=== PATIENT | male | born 1940 | race Caucasian/White ===

== ENCOUNTER 2021-07-29 07:06 | Inpatient (IN) | payer MEDICARE, OTHER ==
[~2021-07-29] VITALS: Ht 167.6 cm; Wt 59.4 kg
[~2021-07-29 07:06] MED LIST: ACCU-CHEK1 EAC1 SQ; ALDACTONE25 MG PO; AMBIEN5 MG PO; BACTRIM 400-801 EACH PO; BENADRYL 25MG C25 MG PO; BENADRYL ITCH28.3 GM TP; BUSPIRONE HCL10 MG PO; CLOTRIMAZOLE28 GM TP; COZAAR50 MG PO; DICLOFENAC SODI25 MG PO; DIMETHICONE; DULCOLAX10 MG PR; DULCOLAX5 MG PO; FLUVASTATIN SOD20 MG PO; FUROSEMIDE10 MG/1 M1 PO; GLUCAGON EMERGEN1 MG INJ; GLUCOSE GEL38 GM PO; GLUCOTROL 10 MG10 MG PO; HYDROGEL MC; IBUPROFEN400 MG PO; INVOKANA 100 M100 MG PO; JANUMET 50-1,01 EACH PO; KEFLEX500 MG PO; LANTUS100 UNIT/1 SQ; MAPAP325 MG PO; MILK OF MAGNESI30 ML PO; MOTRIN SUS100 MG/5 M PO; TRAZODONE HCL50 MG PO; VITAMIN B-1000 MCG/M IM; XALATAN2.5 ML OP
[2021-07-29 07:58] LABS: HEMOGLOBIN 13.9 gm/dl (14.0-17.5); RED BLOOD COUNT 4.51 M/UL (4.20-5.50); WHITE BLOOD COUNT 18.9 K/UL (4.5-11.0)
[2021-07-29] MEDS ORDERED: FLOMAX 0.4 MG0.4 MG PO (11:13)
[2021-07-29] MEDS ORDERED: DRONABINOL2.5 MG PO (11:13)
[2021-07-29] MEDS ORDERED: ESCITALOPRAM OX20 MG PO (11:14)
[2021-07-29] MEDS ORDERED: ESCITALOPRAM OX10 MG PO (11:14)
[2021-07-29] MEDS ORDERED: VITAMIN D325 MC6 PO (11:19)
[2021-07-29] MEDS ORDERED: HUMALOG100 UNIT/3 SQ (11:19)
[2021-07-29] MEDS ORDERED: CULTURELLE1 EACH PO (11:20)
[2021-07-29] MEDS ORDERED: FERROUS SULFAT325 MG PO (11:20)
[2021-07-29] MEDS ORDERED: VITAMIN C500 M4 PO (11:20)
[2021-07-29 20:04] LABS: WHITE BLOOD COUNT 22.6 K/UL (4.5-11.0)
[2021-07-29 20:07] LABS: RED BLOOD COUNT 3.97 M/UL (4.20-5.50)
[2021-07-30 05:31] LABS: RED BLOOD COUNT 3.92 M/UL (4.20-5.50)
[2021-07-31 06:16] LABS: RED BLOOD COUNT 3.61 M/UL (4.20-5.50)
[2021-08-01 06:44] LABS: HEMOGLOBIN 10.3 gm/dl (14.0-17.5); RED BLOOD COUNT 3.42 M/UL (4.20-5.50)
[2021-08-01 06:45] LABS: WHITE BLOOD COUNT 10.7 K/UL (4.5-11.0)
[2021-08-02 06:09] LABS: HEMOGLOBIN 11.7 gm/dl (14.0-17.5); WHITE BLOOD COUNT 11.7 K/UL (4.5-11.0)
[2021-08-02 06:15] LABS: RED BLOOD COUNT 3.83 M/UL (4.20-5.50)
--- NOTE | 2021-08-02 16:46 | NUR ---
dsg change to foot done as ordered.
[2021-08-03 07:00] LABS: HEMOGLOBIN 10.6 gm/dl (14.0-17.5); RED BLOOD COUNT 3.52 M/UL (4.20-5.50); WHITE BLOOD COUNT 9.8 K/UL (4.5-11.0)
[2021-08-04 11:42] LABS: HEMOGLOBIN 10.8 gm/dl (14.0-17.5); RED BLOOD COUNT 3.56 M/UL (4.20-5.50); WHITE BLOOD COUNT 9.5 K/UL (4.5-11.0)
[2021-08-04] MEDS ORDERED: STIMULANT LAXA1 EACH PO (12:38)
[2021-08-04] MEDS ORDERED: MEGACE 400400 MG/10 PO (12:38)
[2021-08-04] MEDS ORDERED: THERAGRAN M TAB1 EA PO (12:38)
[2021-08-04] MEDS ORDERED: ASPIRIN EC81 MG PO (12:38)
[2021-08-04] MEDS ORDERED: LEVOFLOXACIN250 MG PO (12:38)
[2021-08-04] MEDS ORDERED: TYLENOL 8 HOUR650 MG PO (12:38)
[2021-08-04] MEDS ORDERED: HYSEPT473 ML TOP (12:38)
[2021-08-04] MEDS ORDERED: LANTUS100 UNIT/1 SQ (12:49)
== END 2021-08-04 17:07 | DRG 698 ==
LOC: ER1 07:06 → MED SURG 4 09:26 → CDU 09:26 → CCU 09:26 → MED SURG 4 08-01 17:15
PROVIDERS: Emergency Medicine; Internal Medicine Infectious Disease; Podiatrist Foot & Ankle Surgery; ADMIT Internal Medicine
PROC: 3E03329 Introduction of Other Anti-infective into Peripheral Vein, Percutaneous Approach (ICD-10-PCS; principal; 2021-07-29)
PROC: B24BZZZ Ultrasonography of Heart with Aorta (ICD-10-PCS; 2021-08-03)
DX: T83.511A Infection and inflammatory reaction due to indwelling urethral catheter, initial encounter (principal); A41.52 Sepsis due to Pseudomonas; R65.20 Severe sepsis without septic shock; Z20.822 Contact with and (suspected) exposure to COVID-19; G93.41 Metabolic encephalopathy; Z66 Do not resuscitate; J69.0 Pneumonitis due to inhalation of food and vomit; N17.9 Acute kidney failure, unspecified; N30.00 Acute cystitis without hematuria; M86.671 Other chronic osteomyelitis, right ankle and foot; I13.0 Hypertensive heart and chronic kidney disease with heart failure and stage 1 through stage 4 chronic kidney disease, or unspecified chronic kidney disease; M62.82 Rhabdomyolysis; E87.2 Acidosis; E87.0 Hyperosmolality and hypernatremia; I50.9 Heart failure, unspecified; E11.69 Type 2 diabetes mellitus with other specified complication; F03.90 Unspecified dementia, unspecified severity, without behavioral disturbance, psychotic disturbance, mood disturbance, and anxiety; E11.649 Type 2 diabetes mellitus with hypoglycemia without coma; E78.00 Pure hypercholesterolemia, unspecified; F17.210 Nicotine dependence, cigarettes, uncomplicated; E11.65 Type 2 diabetes mellitus with hyperglycemia; Y84.6 Urinary catheterization as the cause of abnormal reaction of the patient, or of later complication, without mention of misadventure at the time of the procedure; E11.51 Type 2 diabetes mellitus with diabetic peripheral angiopathy without gangrene; I07.1 Rheumatic tricuspid insufficiency; N40.1 Benign prostatic hyperplasia with lower urinary tract symptoms; R33.8 Other retention of urine; E11.22 Type 2 diabetes mellitus with diabetic chronic kidney disease; N18.30 Chronic kidney disease, stage 3 unspecified; Z79.4 Long term (current) use of insulin; Z74.01 Bed confinement status; Z79.01 Long term (current) use of anticoagulants; Z79.82 Long term (current) use of aspirin; Z98.42 Cataract extraction status, left eye; Z98.41 Cataract extraction status, right eye
CPT/HCPCS: ECHO; 0240U; 36415; 36600; 70450; 71045; 73600; 80048; 80053; 80202; 81001; 82436; 82550; 82553; 82570; 82607; 82803; 82962; 83036; 83605; 83735; 83874; 83880; 83930; 84100; 84132; 84133; 84156; 84300; 84443; 84484; 85025; 85652; 86140; 87040; 87070; 87077; 87086; 87186; 87205; 93005; 93306; 93926; 94664; 94760; 96374; 96375; 99285; A6212; C9113; J0696; J1450; J1644; J2185; J3370; J3480; J7050; J7060; J7070

== ENCOUNTER 2021-10-08 07:09 | Inpatient (IN) | payer MEDICARE, OTHER ==
[~2021-10-08] VITALS: Ht 182.9 cm; Wt 62.1 kg
[~2021-10-08 07:09] MED LIST changes: +ASPIRIN EC81 MG PO; +CULTURELLE1 EACH PO; +DRONABINOL2.5 MG PO; +ESCITALOPRAM OX10 MG PO; +ESCITALOPRAM OX20 MG PO; +FERROUS SULFAT325 MG PO; +FLOMAX 0.4 MG0.4 MG PO; +HUMALOG100 UNIT/3 SQ; +HYSEPT473 ML TOP; +LEVOFLOXACIN250 MG PO; +MEGACE 400400 MG/10 PO; +STIMULANT LAXA1 EACH PO; +THERAGRAN M TAB1 EA PO; +TYLENOL 8 HOUR650 MG PO; +VITAMIN C500 M4 PO; +VITAMIN D325 MC6 PO
[2021-10-08 07:44] LABS: HEMOGLOBIN 14.4 gm/dl (14.0-17.5); RED BLOOD COUNT 4.78 M/UL (4.20-5.50); WHITE BLOOD COUNT 10.4 K/UL (4.5-11.0)
[2021-10-08 08:07] LABS: BUN/CREATININE RATIO 40 (0-10)
[2021-10-08] MEDS ORDERED: MIRTAZAPINE15 MG PO (17:04)
[2021-10-08] MEDS ORDERED: CITALOPRAM HBR10 MG PO (17:04)
[2021-10-08] MEDS ORDERED: CYPROHEPTADINE H4 MG PO (17:05)
[2021-10-08] MEDS ORDERED: BISACODYL5 MG PO (17:07)
[2021-10-08] MEDS ORDERED: VITAMIN A & D113 G1 TOP (17:10)
[2021-10-08] MEDS ORDERED: VITAMIN C500 M4 PO (17:11)
[2021-10-08] MEDS ORDERED: ESCITALOPRAM OX20 MG PO (17:13)
[2021-10-09 04:01] LABS: HEMOGLOBIN 11.8 gm/dl (14.0-17.5); RED BLOOD COUNT 3.99 M/UL (4.20-5.50); WHITE BLOOD COUNT 18.3 K/UL (4.5-11.0)
[2021-10-10 03:23] LABS: CANDIDA ALBICANS Not Detected (Negative); ESCHERICHIA COLI Not Detected (Negative); HAEMOPHILUS INFLUENZAE Not Detected (Negative); KLEBSIELLA OXYTOCA Not Detected (Negative); KLEBSIELLA PNEUMONIAE Not Detected (Negative); KPC-CARBAPENEM-RESISTANCE GENE Not Detected (Negative); PROTEUS Not Detected (Negative); PSEUDOMONAS AERUGINOSA Not Detected (Negative); SERRATIA MARCESANS Not Detected (Negative); STAPHYLOCOCCUS AUREUS Not Detected (Negative); STREP AGALACTIAE (GROUP B) Not Detected (Negative); STREP PYOGENES (GROUP A) Not Detected (Negative); STREPTOCOCCUS Not Detected (Negative); vanA/B (VANCOMYCIN RESIST GENE Not Detected (Negative)
[2021-10-10 03:24] LABS: CANDIDA KRUSEI Not Detected (Negative); CANDIDA TROPICALIS Not Detected (Negative)
[2021-10-10 04:44] LABS: STAPHYLOCOCCUS DETECTED (Negative)
[2021-10-10 05:21] LABS: BUN/CREATININE RATIO 39 (0-10)
[2021-10-11 12:31] LABS: HEMOGLOBIN 10.9 gm/dl (14.0-17.5); RED BLOOD COUNT 3.63 M/UL (4.20-5.50); WHITE BLOOD COUNT 16.1 K/UL (4.5-11.0)
[2021-10-11 13:04] LABS: BUN/CREATININE RATIO 36 (0-10)
[2021-10-12 01:50] LABS: HEMOGLOBIN 11.3 gm/dl (14.0-17.5); RED BLOOD COUNT 3.77 M/UL (4.20-5.50); WHITE BLOOD COUNT 14.1 K/UL (4.5-11.0)
[2021-10-12 02:27] LABS: BUN/CREATININE RATIO 39 (0-10)
[2021-10-13 02:25] LABS: HEMOGLOBIN 11.3 gm/dl (14.0-17.5); RED BLOOD COUNT 3.78 M/UL (4.20-5.50); WHITE BLOOD COUNT 12.6 K/UL (4.5-11.0)
[2021-10-13 02:54] LABS: BUN/CREATININE RATIO 49 (0-10)
[2021-10-14 05:13] LABS: BUN/CREATININE RATIO 59 (0-10)
[2021-10-15 03:14] LABS: BUN/CREATININE RATIO 66 (0-10)
[2021-10-15 03:19] LABS: HEMOGLOBIN 10.7 gm/dl (14.0-17.5); RED BLOOD COUNT 3.64 M/UL (4.20-5.50); WHITE BLOOD COUNT 10.6 K/UL (4.5-11.0)
[2021-10-16 09:06] LABS: HEMOGLOBIN 10.3 gm/dl (14.0-17.5); RED BLOOD COUNT 3.59 M/UL (4.20-5.50); WHITE BLOOD COUNT 11.4 K/UL (4.5-11.0)
[2021-10-16 09:31] LABS: BUN/CREATININE RATIO 73 (0-10)
[2021-10-17 04:13] LABS: HEMOGLOBIN 11.1 gm/dl (14.0-17.5); RED BLOOD COUNT 3.77 M/UL (4.20-5.50)
[2021-10-17 10:00] LABS: BUN/CREATININE RATIO 77 (0-10)
[2021-10-18 03:25] LABS: HEMOGLOBIN 10.4 gm/dl (14.0-17.5); RED BLOOD COUNT 3.55 M/UL (4.20-5.50); WHITE BLOOD COUNT 12.1 K/UL (4.5-11.0)
[2021-10-18 03:56] LABS: BUN/CREATININE RATIO 81 (0-10)
--- NOTE | 2021-10-19 01:01 | NUR ---
APPROX 1999 PT O2 68% PT IS LABORED BREATHING ON 02 @ 3L AT THIS TIME. RESPIRATORY ALREADY ON FLOOR, PLACE PT ON BIPAP AND 0R INCREASES INTO 90'S. APPROX 2034 NOTIFIED DAUGHTER OF CHANGE IN PATIENT CONDTION. SHE GIVES NEW CELL PHONE TO CONTACT HER ON [phone] STATES TO CALL HER BACK IF ANY CHNAGES SHE WILL COME UP IN THE AM SHE IS AT WORK CURRENTLY. APPROX 2214 PT VITALS HAVE CHANGED PT IS NOT RESPONDING TO NAME NOR OPENING EYES AT THIS TIME. RIGHT EYE IS HALF OPENED. INCEASED IN BP AND RESPIRATIONS. APPROX 2229 NOTIFIED MD AND MD IS IMMEDIATLEY ON FLOOR ASSESSING PT. 2235 ORDERS FOR ABG BLOOD GAS STAT AND CHEST XRAY STAT. WILL CONTINUE TO MONTIOR PT APPROX 2319 NOTIFIED DAUGHTER OF PATIENT CONDITION CHANGE AGAIN, TOLD DAUGHTER HES NOT RESPONDING TO NAME NOR OPENING EYES AND STATED ABOVE INFORMATION. DAUGHTER STATES SHE DOESNT DRIVE WELL OF THE NIGHT TIME AND WILL BE HERE IN THE AM. STATES A BROTHER IS ON HIS WAY TO SEE PT WELL NELSON.
[2021-10-19 04:03] LABS: HEMOGLOBIN 10.6 gm/dl (14.0-17.5); RED BLOOD COUNT 3.56 M/UL (4.20-5.50)
[2021-10-19 04:07] LABS: WHITE BLOOD COUNT 16.4 K/UL (4.5-11.0)
[2021-10-19 04:50] LABS: BUN/CREATININE RATIO 72 (0-10)
--- NOTE | 2021-10-19 12:27 | NUR ---
1200- TOOK PT OFF BIPAP AND PLACED PT ON 5L NC. PT O2 SAT DROPPED TO 87-88 PERCENT. PT PLACED BACK ON BIPAP. DR. HOSKINS NOTIFIED. WILL CONTINUE TO MONITOR.
--- NOTE | 2021-10-19 18:13 | NUR ---
1814- DR HOSKINS CALLED TO SPEAK WITH FAMILY. COMFORT MEASURES INTIATED AT THIS TIME. PT'S DAUGHTER STATES SHE IS GOING TO GET SOMETHING TO EAT. REQUEST WE WAIT UNTIL SHE RETURNS BEFORE REMOVING BIPAP.
[2021-10-20 07:14] LABS: BUN/CREATININE RATIO 66 (0-10)
[2021-10-20 08:04] LABS: HEMOGLOBIN 11.2 gm/dl (14.0-17.5); RED BLOOD COUNT 3.8 M/UL (4.20-5.50); WHITE BLOOD COUNT 26.9 K/UL (4.5-11.0)
--- NOTE | 2021-10-21 07:41 | NUR ---
JADEN Contacted at [phone]. [employer] named Colette Noonan stated patient was not a candidate for donation because of his age. Case number given was [id number].
== END 2021-10-21 07:06 | disposition expired | DRG 871 ==
LOC: ER1 07:09 → CCU 08:46 → PROG CARE 08:46 → CDU 08:46 → MED SURG 4 08:46 → CCU 11:26 → PROG CARE 10-11 14:15 → MED SURG 4 10-13 08:16
PROVIDERS: Emergency Medicine; Internal Medicine; Internal Medicine Nephrology; Internal Medicine Pulmonary Disease; Physician Assistant; ADMIT Internal Medicine
PROC: 5A0935A Assistance with Respiratory Ventilation, Less than 24 Consecutive Hours, High Flow/Velocity Cannula (ICD-10-PCS; principal; 2021-10-08)
PROC: 0DH67UZ Insertion of Feeding Device into Stomach, Via Natural or Artificial Opening (ICD-10-PCS; 2021-10-09)
PROC: 3E0G76Z Introduction of Nutritional Substance into Upper GI, Via Natural or Artificial Opening (ICD-10-PCS; 2021-10-09)
PROC: 5A09357 Assistance with Respiratory Ventilation, Less than 24 Consecutive Hours, Continuous Positive Airway Pressure (ICD-10-PCS; 2021-10-10)
PROC: 5A0935A Assistance with Respiratory Ventilation, Less than 24 Consecutive Hours, High Flow/Velocity Cannula (ICD-10-PCS; 2021-10-11)
PROC: 5A09357 Assistance with Respiratory Ventilation, Less than 24 Consecutive Hours, Continuous Positive Airway Pressure (ICD-10-PCS; 2021-10-13)
PROC: 5A09357 Assistance with Respiratory Ventilation, Less than 24 Consecutive Hours, Continuous Positive Airway Pressure (ICD-10-PCS; 2021-10-14)
PROC: 5A09357 Assistance with Respiratory Ventilation, Less than 24 Consecutive Hours, Continuous Positive Airway Pressure (ICD-10-PCS; 2021-10-18)
DX: A41.9 Sepsis, unspecified organism (principal); L89.153 Pressure ulcer of sacral region, stage 3; Z20.822 Contact with and (suspected) exposure to COVID-19; Z66 Do not resuscitate; E11.00 Type 2 diabetes mellitus with hyperosmolarity without nonketotic hyperglycemic-hyperosmolar coma (NKHHC); G93.41 Metabolic encephalopathy; J69.0 Pneumonitis due to inhalation of food and vomit; J96.21 Acute and chronic respiratory failure with hypoxia; J18.9 Pneumonia, unspecified organism; I13.0 Hypertensive heart and chronic kidney disease with heart failure and stage 1 through stage 4 chronic kidney disease, or unspecified chronic kidney disease; T83.511A Infection and inflammatory reaction due to indwelling urethral catheter, initial encounter; N17.9 Acute kidney failure, unspecified; N30.00 Acute cystitis without hematuria; E87.0 Hyperosmolality and hypernatremia; E87.1 Hypo-osmolality and hyponatremia; N13.6 Pyonephrosis; E87.2 Acidosis; E46 Unspecified protein-calorie malnutrition; R65.20 Severe sepsis without septic shock; E86.9 Volume depletion, unspecified; E78.5 Hyperlipidemia, unspecified; N28.89 Other specified disorders of kidney and ureter; E11.22 Type 2 diabetes mellitus with diabetic chronic kidney disease; R13.10 Dysphagia, unspecified; E88.09 Other disorders of plasma-protein metabolism, not elsewhere classified; E78.00 Pure hypercholesterolemia, unspecified; L89.220 Pressure ulcer of left hip, unstageable; N40.0 Benign prostatic hyperplasia without lower urinary tract symptoms; L89.512 Pressure ulcer of right ankle, stage 2; I50.9 Heart failure, unspecified; E87.6 Hypokalemia; E86.0 Dehydration; F03.90 Unspecified dementia, unspecified severity, without behavioral disturbance, psychotic disturbance, mood disturbance, and anxiety; F32.A Depression, unspecified; N18.2 Chronic kidney disease, stage 2 (mild); E11.65 Type 2 diabetes mellitus with hyperglycemia; Z51.5 Encounter for palliative care; Z87.440 Personal history of urinary (tract) infections; Z98.42 Cataract extraction status, left eye; Z98.41 Cataract extraction status, right eye; Z68.23 Body mass index [BMI] 23.0-23.9, adult; K56.41 Fecal impaction
CPT/HCPCS: 0240U; 36415; 36600; 70450; 71045; 74018; 80048; 80053; 80202; 81001; 82009; 82550; 82553; 82803; 82962; 83605; 83690; 83735; 83880; 83930; 84295; 84484; 85025; 85027; 86140; 87040; 87077; 87086; 87150; 87186; 92526; 92610; 93005; 94640; 94660; 94664; 94760; 96365; 96375; 99285; A6212; J1650; J2185; J2270; J3370; J7030; J7070